=== PATIENT | female | born 1975 | race Caucasian/White ===

== ENCOUNTER 2023-11-08 08:51 | Day surgery (SDC) | payer BC ==
[2023-11-08] MEDS: Lactated Ringers 1,000 ML IV SCH (10:14)
[2023-11-08] MEDS ORDERED: Propofol 200 MG/20 ML SDV ONE (10:40)
[2023-11-08] MEDS ORDERED: Lidocaine 2% 5 ML SDV ONE (10:40)
== END 2023-11-08 11:45 | disposition home or self-care (01) ==
LOC: MW.SDS 08:51
PROVIDERS: ATTEND Surgery
DX: K21.00 Gastro-esophageal reflux disease with esophagitis, without bleeding (principal); K44.9 Diaphragmatic hernia without obstruction or gangrene; R19.4 Change in bowel habit; Z98.84 Bariatric surgery status; Z88.8 Allergy status to other drugs, medicaments and biological substances; Z79.899 Other long term (current) drug therapy; Z88.5 Allergy status to narcotic agent
CPT/HCPCS: 43239; 45378; J2704; J7120; 00813; J3490

== ENCOUNTER 2024-04-03 08:52 | Day surgery (SDC) | payer BC ==
[~2024-04-03 08:52] MED LIST: Albuterol 0.083% 2.5 MG/3 ML Neb Soln NEB PRN; HYDROmorphone 1 MG/ML Syringe IVPUSH PRN; Metoclopramide 10 MG/2 ML SDV IVPUSH PRN; Morphine 2 MG/ML SYRINGE IVPUSH PRN; Naloxone 0.4 MG/ML SDV IVPUSH PRN; Ondansetron 4 MG/2 ML SDV IVPUSH PRN; Phenylephrine HCl In 0.9% NaCl 1 MG/10 ML Syringe IVPUSH PRN
[2024-04-03] MEDS ORDERED: Scopalamine 1mg/3day Transdermal Patch TOP ONE (09:00)
[2024-04-03] MEDS ORDERED: propofoL 1,000 MG/100 ML 100 ML ONE (09:13)
[2024-04-03] MEDS ORDERED: Lidocaine 2% 5 ML SDV ONE (09:17)
[2024-04-03] MEDS ORDERED: Ondansetron 4 MG/2 ML SDV ONE (09:17)
[2024-04-03] MEDS ORDERED: fentaNYL 100 MCG/2 ML SDV ONE (09:17)
[2024-04-03] MEDS ORDERED: Ketorolac 30 MG/ML SDV ONE (09:17)
[2024-04-03] MEDS ORDERED: Rocuronium Bromide 50 MG/5 ML Syringe ONE (09:29)
[2024-04-03] MEDS ORDERED: Sugammadex Sodium 200 MG/2 ML VIAL IV ONE (09:30)
[2024-04-03] MEDS ORDERED: Metoclopramide 10 MG/2 ML SDV ONE (09:32)
[2024-04-03] MEDS ORDERED: Dexamethasone 4 MG/ML 5 ML MDV ONE (09:33)
[2024-04-03] MEDS ORDERED: Lidocaine 2% 11 ML Jelly Filled Syringe ONE (09:34)
[2024-04-03] MEDS: fentaNYL 50 MCG/ML SDV IVPUSH PRN (11:01)
[2024-04-03] MEDS: Lactated Ringers 1,000 ML IV SCH (11:49)
== END 2024-04-03 11:55 | disposition home or self-care (01) ==
LOC: MW.SDS 08:52
PROVIDERS: ATTEND Obstetrics & Gynecology
DX: N84.0 Polyp of corpus uteri (principal); K21.9 Gastro-esophageal reflux disease without esophagitis; F32.A Depression, unspecified
CPT/HCPCS: 58558; A9270; C1729; J0131; J1100; J1885; J2405; J2704; J2765; J3010; J3490; J7120; 00952

== ENCOUNTER 2024-10-20 10:15 | Emergency (ER) | payer BC, OTHER ==
[2024-10-20] MEDS: Sodium Chloride 0.9% 1,000 ML IV ONE (10:27)
[2024-10-20 10:30] LABS: BASOPHILS ABSOLUTE AUTO 0.05 K/uL (0.00-0.20); BASOPHILS PERCENT AUTO 0.7 % (0.0-1.0); EOSINOPHILS ABSOLUTE AUTO 0.17 K/uL (0.00-0.45); EOSINOPHILS PERCENT AUTO 2.5 % (0.0-6.0); HEMOGLOBIN 12.8 g/dL (12.0-16.0); IMMATURE GRAN ABSOLUTE AUTO 0.02 K/uL (0.00-0.05); IMMATURE GRAN PERCENT AUTO 0.3 % (0.0-0.4); LYMPHOCYTES ABSOLUTE AUTO 2.38 K/uL (1.00-4.80); LYMPHOCYTES PERCENT AUTO 35.6 % (24.0-44.0); MEAN CORPUSCULAR HEMOGLOBIN 29.5 pg (28.0-32.0); MEAN CORPUSCULAR HGB CONC 33.7 g/dL (32.0-36.0); MEAN CORPUSCULAR VOLUME 87.6 fL (83.0-99.0); MEAN PLATELET VOLUME 10.1 fL (9.4-12.3); MONOCYTES ABSOLUTE AUTO 0.49 K/uL (0.00-0.80); MONOCYTES PERCENT AUTO 7.3 % (0.0-8.0); NEUTROPHILS ABSOLUTE AUTO 3.57 K/uL (1.80-7.70); NEUTROPHILS PERCENT AUTO 53.6 % (41.0-71.0); PLATELET COUNT,PLT 293 K/uL (150-400); RED BLOOD CELL COUNT 4.34 M/uL (4.10-5.30); WHITE BLOOD CELL COUNT,WBC 6.68 K/uL (3.9-11.3)
[2024-10-20 10:47] LABS: APPEARANCE,URINE CLEAR; BILIRUBIN,URINE NEGATIVE (NEGATIVE); COLOR,URINE YELLOW; GLUCOSE,URINE NEGATIVE (NEGATIVE); KETONES,URINE NEGATIVE (NEGATIVE); LEUKOCYTE ESTERASE,URINE NEGATIVE (NEGATIVE); NITRITE,URINE NEGATIVE (NEGATIVE); OCCULT BLOOD,URINE NEGATIVE (NEGATIVE); PH,URINE 5.5 (5.0-8.0); PROTEIN,URINE NEGATIVE (NEGATIVE); UROBILINOGEN,URINE 0.2 EU/dL (<2.0)
[2024-10-20 10:57] LABS: AMPHETAMINES SCREEN, URINE NEGATIVE (CUTOFF=500); BARBITURATE SCREEN,URINE NEGATIVE (CUTOFF=200); BENZODIAZEPINES SCREEN,URINE NEGATIVE (CUTOFF=150); BUPRENORPHINE SCREEN,URINE NEGATIVE (CUTOFF=10); METHADONE SCREEN, URINE NEGATIVE (CUTOFF=200); METHAMPHETAMINES SCREEN, URINE NEGATIVE (CUTOFF=500); OXYCODONE SCREEN,URINE NEGATIVE (CUT0FF=100); PCP SCREEN,URINE NEGATIVE (CUTOFF=25); THC SCREEN,URINE 20 NG/ML NEGATIVE (CUTOFF=50)
[2024-10-20 11:23] LABS: ALANINE AMINOTRANSFERASE,ALT 17 IU/L (14-63); ALBUMIN 3.2 g/dL (3.4-5.0); ALKALINE PHOSPHATASE 69 U/L (46-116); ASPARTATE AMNIOTRANSFERASE,AST 17 IU/L (15-37); BILIRUBIN TOTAL 0.2 mg/dL (0.2-1.0); BLOOD UREA NITROGEN,BUN 11 mg/dL (7.0-18.0); CALCIUM 8.2 mg/dL (8.5-10.1); CARBON DIOXIDE,CO2 30.4 mmol/L (21.0-32.0); CHLORIDE,CL 108 mmol/L (98-107); CREATININE 0.8 mg/dL (0.6-1.0); EST CRCL DRUG DOSING (CG) 77.88 mL/min; ETHANOL BLOOD MEDICAL <3 mg/dL; GLUCOSE RANDOM 98 mg/dL (74-106); POTASSIUM,K 4.7 mmol/L (3.5-5.1); PROTEIN TOTAL,TP 6.4 g/dL (6.4-8.2); SODIUM,NA 142 mmol/L (136-145)
[2024-10-20 11:29] LABS: ESTIMATED GFR 89 mL/min (>60)
== END 2024-10-20 11:54 | disposition home or self-care (01) ==
LOC: MW.ED 10:15
DX: R41.0 Disorientation, unspecified (principal); E11.9 Type 2 diabetes mellitus without complications; Z75.3 Unavailability and inaccessibility of health-care facilities; Z88.8 Allergy status to other drugs, medicaments and biological substances; Z79.899 Other long term (current) drug therapy; Z90.49 Acquired absence of other specified parts of digestive tract
CPT/HCPCS: 36415; 70450; 71045; 80053; 80305; 80307; 81003; 84484; 85025; 93005; 96360; 99285; J7030; 93010; 99284